=== PATIENT | male | born 1995 | race African-American/Black ===

== ENCOUNTER 2017-01-16 05:21 | Emergency (ER) | payer OTHER ==
[2017-01-16] MEDS ORDERED: Ibuprofen 800 MG TAB ONE (05:36)
[2017-01-16] MEDS ORDERED: Ondansetron ODT 4 MG TAB ONE (05:52)
[2017-01-16] MEDS ORDERED: Acetaminophen 325 MG TAB ONE (06:05)
== END 2017-01-16 06:17 | disposition home or self-care (01) ==
LOC: NAV ERS 05:21
DX: J10.1 Influenza due to other identified influenza virus with other respiratory manifestations (principal); J45.909 Unspecified asthma, uncomplicated
CPT/HCPCS: 99283; Q0162

== ENCOUNTER 2023-01-07 11:56 | Emergency (ER) | payer OTHER, SELFPAY | END 2023-01-07 12:38 | disposition home or self-care (01) | LOC: NAV ERS 11:56 | DX: H65.92 Unspecified nonsuppurative otitis media, left ear (principal); I10 Essential (primary) hypertension | CPT/HCPCS: 99282 ==

== ENCOUNTER 2023-04-11 08:52 | Emergency (ER) | payer OTHER ==
[2023-04-11 09:16] LABS: Bilirubin Negative (Negative); Blood, Urine Small (Negative); Clarity Clear (Clear); Glucose, Urine (Dipstick) Negative (Negative); Ketone, Urine Negative (Negative); Leukocyte Negative (Negative); Nitrite Negative (Negative); Protein, Urine (Dipstick) Negative (Neg-Trace); Urobilinogen 0.2 mg/dL (Less than 2); pH, Urine 8.5 (5.0-9.0)
[2023-04-11 09:25] LABS: Bacteria/HPF 2+ HPF (None Seen); Squamous Epithelial None Seen HPF (0-3); WBC/HPF None Seen HPF (0-3)
[2023-04-11] MEDS ORDERED: Sulfameth/Trimethoprim DS 800-160mg TAB ONE (09:39)
== END 2023-04-11 09:46 | disposition home or self-care (01) ==
LOC: NAV ERS 08:52
DX: N39.0 Urinary tract infection, site not specified (principal); J45.909 Unspecified asthma, uncomplicated
CPT/HCPCS: 81003; 81015; 87086; 87491; 87591; 99283